=== PATIENT | female | born 1950 | race Caucasian/White ===

== ENCOUNTER 2020-03-08 13:04 | Emergency (ER) | payer MEDICARE, SELFPAY ==
--- NOTE | ~2020-03-08 | XR_ITS ---
EXAMINATION: XR chest 2V 03/08/2020 13:41 INDICATION: Left upper chest pain. Hypertension. PROCEDURE: AP and lateral views of the chest COMPARISON: No prior studies for comparison. FINDINGS: The lungs are clear. The cardiomediastinal silhouette is within normal limits. There are no pleural effusions. There is no pneumothorax suspected. There is mild curvature of the thoracolum bar spine. There is atherosclerosis of the aorta. IMPRESSION: 1: NO ACUTE CARDIOPULMONARY DISEASE. Reviewed, dictated and finalized at location A.
--- NOTE | ~2020-03-08 | CT_ITS ---
EXAMINATION: CT abdomen pelvis w con DATE: 03/08/2020 15:20 INDICATION: Abdomen pain. TECHNIQUE: Computed tomography (CT) of the abdomen and pelvis was performed with 100 cc Omnipaque 350 intravenous contrast. The dose-length product was 187.56 mGy-cm. Automated exposure control and iter ative reconstruction technique were employed. COMPARISON: None. FINDINGS: Heart size is normal. No significant pleural or pericardial effusion. There are gallstones. Small subcentimeter hypodensity left hepatic lobe, most likely benign. The sple en, pancreas, right adrenal gland are unremarkable. There is a 2.4 cm left adrenal mass, most likely benign. Consider correlation with MRI. There are multiple subcentimeter hypodensities of the kidneys, most likely benign cysts. There is mild prominence of the common bile duct, likely attributable to p atient's age. There are nonobstructing renal stones. Colonic diverticulosis without evidence for diverticulitis. No bowel obstruction. Uterus contains coa rse calcifications, likely related to underlying fibroid changes. No free air or free fluid. IMPRESSION: 1. Cholelithiasis with mild biliary dilatation. No obstructing stone or mass is identified. Consider correlation with nuclear hepatobiliary scan or MRCP as clinically warranted. 2: 2.4 cm left adrenal mass, most likely benign adenoma. Consider correlation with MRI as clinically warranted. 3: Nonobstructing bilateral nephrolithiasis. Reviewed, dictated and finalized at location A. IMPRESSION: 1. Cholelithiasis with mild biliary dilatation. No obstructing stone or mass is identified. Consider correlation with nuclear hepatobiliary scan or MRCP as cl inically warranted. 2: 2.4 cm left adrenal mass, most likely benign adenoma. Consider correlation with MRI as clinically warranted. 3: Nonobstructing bilateral nephrolithiasis.
[2020-03-08 13:09] VITALS: BP 179/58; PULSE 63; RESP 15; TEMP 36.4; O2SAT 100
[2020-03-08 13:18] VITALS: PULSE 69
--- NOTE | 2020-03-08 13:18 | ECG_ITS ---
Measurements Intervals [place] Rate: 60 P: 33 AK: 158 QRS: 3 QRSD: 86 T: 67 QT: 404 QTc: 407 Interpretive Statements SINUS RHYTHM BASELINE ARTIFACT- I, II, III, AVR, AVL, AVF, V1, V4-V6 BORDERLINE ECG Electronically Signed On 03-08-2020 13:27:24 CDT by Curtis Franco D.O.
[2020-03-08 13:39] LABS: Basophils Absolute Auto 0.1 K/mm3 (0.0-0.1); Basophils Percent Auto 0.7 % (0.2-1.2); Eosinophils Absolute Auto 0.1 K/mm3 (0-0.3); Eosinophils Percent Auto 1.1 % (0-4.4); Hemoglobin 12.8 g/dL (12.0-15.0); Immature Granulocyte Absolute 0.03 K/mm3 (0.00-0.031); Immature Granulocyte Percent A 0.4 % (0-0.5); Lymphocytes Absolute Auto 3.08 K/mm3 (0.9-3.2); Lymphocytes Percent Auto 43.1 % (18.3-44.2); Mean Corpuscular HGB Conc 32.8 g/dl (32-36); Mean Corpuscular Hemoglobin 27.4 pg (26-34); Mean Corpuscular Volume 83.3 fl (80-100); Mean Platelet Volume 9.9 fl (7.4-10.4); Monocytes Absolute Auto 0.6 K/mm3 (0.1-0.6); Monocytes Percent Auto 8.1 % (2.6-8.5); Neutrophils Absolute Auto 3.3 K/mm3 (1.3-6.7); Neutrophils Percent Auto 46.6 % (45.5-73.1); Platelet Count Result 319 k/mm3 (150-375); Red Blood Count 4.68 M/mm3 (4.2-5.4); White Blood Count 7.2 K/mm3 (4.5-10.0)
[2020-03-08 13:50] LABS: Blood Urea Nitrogen 18 mg/dL (7-17); Calcium 9.9 mg/dL (8.4-10.2); Carbon Dioxide 27 mmol/L (22-30); Chloride 102 mmol/L (98-107); Estimated CRCL calculation 38 ml/min; Estimated Glomerular Filt Rate > 60; Glucose 159 mg/dL (65-105); Sodium 139 mmol/L (137-145)
[2020-03-08 13:52] LABS: INR 0.9; Partial Thromboplastin Time 24.9 SECONDS (22.3-36.8); Prothrombin Time 11.8 Seconds (11.1-14.7)
--- NOTE | 2020-03-08 13:52 | ED.CHESTPAIN ---
HPI - Chest Pain General Chief Complaint: Chest Pain Stated Complaint: CHEST PAIN Time Seen by Provider: 03/08/20 13:23 Source: RN notes reviewed History of Present Illness HPI narrative: Patient presents emergency department from home for chest pain patient states that approximately 30 minutes ago she woke from sleep with left-sided chest pain. Pain is located left lower chest and does not radiate. Described as burning. States associated nausea. Patient denies any fevers or chills shortness of breath diarrhea or any other symptoms. Related Data Allergies Allergy/AdvReac Type Severity Reaction Status Date / Time No Known Allergies Allergy Verified 03/08/20 14:04 Review of Systems Review of Systems: Narrative: Gen.: Denies fevers or chills Eyes: Denies eye pain or visual change ENT: Denies congestion Respiratory: Denies shortness of breath or cough CV: See HPI GI: Reports epigastric abdominal pain and nausea denies vomiting or diarrhea Musculoskeletal: Denies back pain or muscle pain Neuro: Denies numbness, tingling, weakness or focal weakness Skin: Denies rash Except as documented, all other systems reviewed and negative [facility] Past Medical History Medical History (Updated 03/09/20 @ 00:00 by Swetha Szymanski) Diabetes mellitus Hypertension Social History Social History (Updated 03/08/20 @ 13:53 by Rolly Lombardi DO) Smoking status: Never smoker Gender identity (if verbalized by the patient): Female Exam Narrative: Exam Narrative: APPEARANCE: No acute distress, nontoxic, resting in bed HEENT: Normocephalic, atraumatic, OMM RESPIRATORY: No respiratory distress, clear to auscultation bilaterally with no rhonchi wheezing or rales CARDIOVASCULAR: RRR s murmur ABDOMINAL: Soft, nondistended, tender palpation epigastric and left upper quadrant and right upper quadrant, no tenderness in right lower quadrant left lower quadrant, no rebound or guarding MUSCULOSKELETAl: Moves all extremities. No clubbing, cyanosis or edema. NEURO: Awake and alert. Following commands, speech normal, no focal deficits SKIN:: Warm, dry. Normal Color PSYCHIATRIC: Normal affect/mood Course Course Emergency Course: Reviewed CT scan. Liver enzymes within normal limits as well as lipase abdominal pain is resolved at this time Dr. Lopez presentation work-up. Will follow as outpatient Patient states that they are feeling much better at this time. States abdominal pain has resolved. Repeat abdominal exam shows the patient's abdomen to be soft and nontender. Discussed with patient results of workup and diagnosis. Discussed need for follow-up with primary care physician, reasons to return to the emergency department in proper use of medication. Patient understands and agrees to current treatment plan Vital Signs Vital signs: Vital Signs Temperature 97.6 F 03/08/20 13:09 Pulse Rate 63 03/08/20 13:09 Respiratory Rate 15 03/08/20 13:09 Blood Pressure 179/58 H 03/08/20 13:09 Pulse Oximetry 100 03/08/20 13:09 Temperature 97.6 F 03/08/20 13:09 Pulse Rate 65 03/08/20 15:46 Respiratory Rate 19 03/08/20 15:46 Blood Pressure 119/58 L 03/08/20 17:19 Pulse Oximetry 99 03/08/20 17:19 MDM - Chest Pain MDM Narrative Medical decision making narrative: Patient's abdomen is soft without significant pain or signs of surgical abdomen on serial exams. Lab and x-ray evaluations are reviewed and patient is felt to be a reasonable candidate for outpatient management. Patient was instructed as to limitations of x-ray and laboratory evaluation and encouraged to return to ED or primary physician for repeat exam in 12 hours if continued or worsening pain Patient's EKGs and labs are without significant high risk changes. Cardiac risk factors reviewed. Patient is felt likely low risk for ACS and reasonable for further risk stratification testing as an outpatient. Pain was not sudden or maximal in onset without tearing or ripping latisha
[2020-03-08 14:02] LABS: Troponin I < 0.012 ng/mL (0.000-0.034)
[2020-03-08 14:04] VITALS: BP 160/58; PULSE 61; RESP 14; O2SAT 99
[2020-03-08] MEDS: ASPIRIN 81 MG CHEWABLE TABLET 324 MG PO (14:05)
[2020-03-08 14:41] LABS: Alanine Aminotransferase 9 U/L (4-35); Albumin Level 4.3 g/dL (3.5-5.1); Alkaline Phosphatase 108 U/L (38-126); Aspartate Amino Transferase 18 U/L (14-36); Bilirubin,Total 0.5 mg/dL (0.2-1.3); Lipase 102 U/L (23-300)
[2020-03-08 14:46] VITALS: BP 149/63; PULSE 68; RESP 12; O2SAT 98
[2020-03-08 15:46] VITALS: BP 179/91; PULSE 65; RESP 19; O2SAT 98
[2020-03-08 17:01] LABS: Troponin I < 0.012 ng/mL (0.000-0.034)
[2020-03-08 17:19] VITALS: BP 119/58; O2SAT 99
== END 2020-03-08 18:07 | disposition home or self-care (01) ==
PROVIDERS: Emergency Provider Emergency Medicine; PCP Internal Medicine Endocrinology, Diabetes & Metabolism
DX: K80.20 Calculus of gallbladder without cholecystitis without obstruction (principal); E11.9 Type 2 diabetes mellitus without complications; I10 Essential (primary) hypertension
CPT/HCPCS: 36415; 71046; 74177; 80048; 80076; 83690; 84484; 85025; 85610; 85730; 93005; 96374; 99284; A9270; J0131; Q9967